=== PATIENT | male | born 2000 | race Caucasian/White ===

== ENCOUNTER 2024-07-09 13:22 | Emergency (ER) | payer OTHER ==
[~2024-07-09] VITALS: Ht 177.8 cm; Wt 81.0 kg
[2024-07-09 13:55] VITALS: O2SAT 100
[2024-07-09] MEDS ORDERED: IBUP-2029 MT (14:40)
[2024-07-09] MEDS ORDERED: ACYC200C31 MT (14:40)
[2024-07-09 15:01] VITALS: BP 118/68; PULSE 84; RESP 18; TEMP 36.83628; O2SAT 100
== END 2024-07-09 15:02 | disposition home or self-care (01) ==
LOC: ER 13:22
DX: K12.1 Other forms of stomatitis (principal); J45.909 Unspecified asthma, uncomplicated
CPT/HCPCS: 99283